=== PATIENT | male | born 1970 | race Caucasian/White ===

== ENCOUNTER 2017-03-12 10:56 | Emergency (ER) | payer OTHER ==
[~2017-03-12] VITALS: Ht 180.3 cm; Wt 127.5 kg
[2017-03-12 11:16] LABS: CREATININE 0.8 mg/dL (0.6-1.3)
[2017-03-12 11:31] LABS: PROTHROMBIN TIME 10.2 (9.2-11.2); PTT 25.2 (25-32)
[2017-03-12 11:32] LABS: AMYLASE 57 IU/L (1-118)
[2017-03-12 11:40] LABS: LIPASE 20 U/L (1.0-51.0)
[2017-03-12 11:42] LABS: TROP-I INTERPRETATION NEGATIVE; TROPONIN-I < 0.01 ng/mL (0.0-0.30)
[2017-03-12 12:49] VITALS: BP 143/92
== END 2017-03-12 12:48 | disposition short-term general hospital (02) ==
LOC: EME 10:56
PROVIDERS: Emergency Medicine
DX: I63.511 Cerebral infarction due to unspecified occlusion or stenosis of right middle cerebral artery (principal); I10 Essential (primary) hypertension; F17.200 Nicotine dependence, unspecified, uncomplicated; R29.810 Facial weakness; R47.81 Slurred speech
CPT/HCPCS: 70450; 80047; 82150; 83690; 84484; 85610; 85730; 93005; J2997

== ENCOUNTER 2017-03-17 11:49 | Inpatient (IN) | payer OTHER ==
[~2017-03-17] VITALS: Ht 180.3 cm; Wt 121.0 kg
[2017-03-17] MEDS ORDERED: HEPARIN SO5000 UNITS SC (15:17)
[2017-03-17] MEDS ORDERED: ACETAMINOPHEN325 M1 PO (15:18)
[2017-03-17] MEDS ORDERED: ATORVASTATIN CA40 MG PO (15:19)
[2017-03-17] MEDS ORDERED: PLAVIX75 MG PO (15:19)
[2017-03-17] MEDS ORDERED: ASPIR 8181 M1 PO (15:19)
[2017-03-17] MEDS ORDERED: LABETALOL HCL300 MG PO (15:20)
[2017-03-17] MEDS ORDERED: NICODERM CQ1 EAC2 TD (15:22)
[2017-03-17] MEDS ORDERED: FLUOXETINE HCL20 MG PO (15:23)
[2017-03-17 16:04] VITALS: BP 132/81
[2017-03-17 21:54] VITALS: BP 135/87
[2017-03-18 03:48] VITALS: BP 131/90
[2017-03-18 05:34] LABS: MCH 30.1 PG (29.0-34.0); MCHC 34.3 G/DL (30.0-36.0); MCV 87.9 FL (86-99); MEAN PLAT.VOLUME 9.4 uM^3 (9.0-12.4); PLATELET COUNT 320 K/uL (156-360); RBC DIS.WIDTH-CV 13.2 % (11.8-14.6); RBC DIS.WIDTH-SD 42.8 % (39-53); RED BLOOD COUNT 4.55 M/uL (4.00-5.50); WHITE BLOOD COUNT 6.4 K/uL (4.1-10.2)
[2017-03-18 05:41] LABS: CHLORIDE 106 mEq/L (99-109); POTASSIUM 4.2 mEq/L (3.7-5.4); SODIUM 139 mEq/L (136-147)
[2017-03-18 05:44] LABS: GLUCOSE 95 mg/dL (70-99)
[2017-03-18 05:45] LABS: ANION GAP 10 MEQ/L (2-14)
[2017-03-18 05:46] LABS: TOTAL BILIRUBIN 1.3 mg/dL (0.0-1.0)
[2017-03-18 05:47] LABS: ALKALINE PHOSPHATASE 48 IU/L (3-129); GFR ESTIMATE (CALCULATED) > 59 mL/min/
[2017-03-18 05:48] LABS: UREA NITROGEN (BUN) 23 mg/dL (9-23)
[2017-03-18 15:43] VITALS: BP 125/81
[2017-03-19 04:26] LABS: TOTAL BILIRUBIN 1.4 mg/dL (0.0-1.0)
[2017-03-19 04:27] LABS: ALKALINE PHOSPHATASE 51 IU/L (3-129)
[2017-03-19 04:29] LABS: DIRECT BILIRUBIN 0.4 mg/dL (0.0-0.3)
[2017-03-19 05:12] VITALS: BP 112/70
[2017-03-19 09:27] LABS: HBSG INDEX 0.21; HPCA INDEX 0.09
[2017-03-19 09:28] LABS: ANTI-HEPATITIS A VIRUS (IGM) Nonreactive; HAV INDEX 0.13
[2017-03-19 09:29] LABS: ANTI-HEPATITIS B CORE (IGM) Nonreactive; HBC IgM INDEX 0.06
[2017-03-19 15:40] VITALS: BP 136/97
[2017-03-20 05:18] VITALS: BP 117/57
[2017-03-20 15:01] VITALS: BP 116/67
[2017-03-21 05:17] VITALS: BP 110/74
[2017-03-21 15:03] VITALS: BP 126/74
[2017-03-22 04:43] VITALS: BP 125/82
[2017-03-22 15:38] VITALS: BP 134/71
[2017-03-23 05:57] VITALS: BP 123/75
[2017-03-23 15:40] VITALS: BP 130/78
[2017-03-24 05:48] VITALS: BP 109/71
[2017-03-24 15:34] VITALS: BP 119/83
[2017-03-25 05:10] VITALS: BP 112/64
[2017-03-25 05:51] LABS: BASOPHIL COUNT 0.1 K/uL (0-0.1); EOSINOPHIL (%) 2.5 % (0-5); EOSINOPHIL COUNT 0.2 K/uL (0-0.3); HEMATOCRIT 42.7 % (38.0-50.0); IMMATURE GRANULOCYTE (%) 0.4 % (0.0-0.7); INSTRUMENT ABS NEUTROPHIL CT 4.1 K/uL; MCH 29.8 PG (29.0-34.0); MCHC 33.5 G/DL (30.0-36.0); MEAN PLAT.VOLUME 9.4 uM^3 (9.0-12.4); MONOCYTE (%) 10.2 % (3-12); MONOCYTE COUNT 0.8 K/uL (0-0.8); NEUTROPHIL (%) 49.4 % (45-76); NEUTROPHIL COUNT 4.1 K/uL (1.8-6.4); PLATELET COUNT 371 K/uL (156-360); RBC DIS.WIDTH-CV 13.2 % (11.8-14.6); RBC DIS.WIDTH-SD 43.4 % (39-53); WHITE BLOOD COUNT 8.3 K/uL (4.1-10.2)
[2017-03-25 06:15] LABS: ALKALINE PHOSPHATASE 53 IU/L (3-129); ANION GAP 11 MEQ/L (2-14); CHLORIDE 103 MEQ/L (99-109); GFR ESTIMATE (CALCULATED) > 59 mL/min/; GLUCOSE 88 mg/dL (70-99); POTASSIUM 3.8 MEQ/L (3.7-5.4); SAMPLE HEMOLYSIS CHECK 0; SAMPLE ICTERIC CHECK 0; SAMPLE LIPEMIA CHECK 0; SODIUM 138 MEQ/L (136-147); TOTAL BILIRUBIN 0.9 MG/DL (0.0-1.0); UREA NITROGEN (BUN) 22 mg/dL (9-23)
[2017-03-25 15:12] VITALS: BP 116/68
[2017-03-26 05:54] VITALS: BP 114/79
[2017-03-26 15:30] VITALS: BP 145/74
[2017-03-27 05:02] VITALS: BP 124/72
[2017-03-27 15:56] VITALS: BP 136/88
[2017-03-28 04:53] VITALS: BP 127/81
[2017-03-28 15:20] VITALS: BP 123/84
[2017-03-29 05:49] VITALS: BP 117/68
[2017-03-29 15:50] VITALS: BP 134/86
[2017-03-30 05:25] VITALS: BP 100/66
[2017-03-30] MEDS ORDERED: NICODERM CQ1 EAC1 TD (11:14)
[2017-03-30] MEDS ORDERED: LABETALOL HCL300 MG PO (11:18)
[2017-03-30] MEDS ORDERED: ATORVASTATIN CA40 MG PO (11:18)
[2017-03-30] MEDS ORDERED: BUTALB-APAP-CA1 EACH PO (11:18)
[2017-03-30] MEDS ORDERED: SENNA PLUS TAB1 EACH PO (11:18)
[2017-03-30] MEDS ORDERED: TYLENOL REGULA325 MG PO (11:18)
[2017-03-30] MEDS ORDERED: PLAVIX75 MG PO (11:18)
[2017-03-30] MEDS ORDERED: FLUOXETINE HCL20 MG PO (11:18)
[2017-03-30] MEDS ORDERED: THERAGRAN1 TABLET PO (11:18)
[2017-03-30] MEDS ORDERED: ASPIR 8181 M1 PO (11:18)
[2017-03-30] MEDS ORDERED: LABETALOL HCL100 MG PO (12:18)
== END 2017-03-30 13:16 | DRG 57 ==
LOC: 3WEST 11:49
PROVIDERS: Internal Medicine Gastroenterology; Physical Medicine & Rehabilitation Pain Medicine; Psychiatry & Neurology Neurology
PROC: F07M0ZZ Range of Motion and Joint Mobility Treatment of Musculoskeletal System - Whole Body (ICD-10-PCS; principal; 2017-03-17)
DX: I69.354 Hemiplegia and hemiparesis following cerebral infarction affecting left non-dominant side (principal); I69.322 Dysarthria following cerebral infarction; I69.391 Dysphagia following cerebral infarction; R13.11 Dysphagia, oral phase; R26.2 Difficulty in walking, not elsewhere classified; I65.21 Occlusion and stenosis of right carotid artery; R74.8 Abnormal levels of other serum enzymes; K76.0 Fatty (change of) liver, not elsewhere classified; K74.60 Unspecified cirrhosis of liver; R94.31 Abnormal electrocardiogram [ECG] [EKG]; I10 Essential (primary) hypertension; E66.9 Obesity, unspecified; Z68.37 Body mass index [BMI] 37.0-37.9, adult; Z71.3 Dietary counseling and surveillance; G89.29 Other chronic pain; M25.512 Pain in left shoulder; G43.909 Migraine, unspecified, not intractable, without status migrainosus; E78.00 Pure hypercholesterolemia, unspecified; E78.5 Hyperlipidemia, unspecified; F17.210 Nicotine dependence, cigarettes, uncomplicated; Z95.828 Presence of other vascular implants and grafts
CPT/HCPCS: 76705; 80053; 80074; 80076; 85025; 85027; 86038; 92507 GN; 92523 GN; 92526 GN; 92610 GN; 93306; 97110 GO; 97112 GO; 97530 GP; J1650

== ENCOUNTER → 2017-04-26 | Outpatient (CLI) | payer OTHER ==
[~2017-04-26] MED LIST: ACETAMINOPHEN325 M1 PO; ASPIR 8181 M1 PO; ATORVASTATIN CA40 MG PO; BUTALB-APAP-CA1 EACH PO; FLUOXETINE HCL20 MG PO; HEPARIN SO5000 UNITS SC; LABETALOL HCL100 MG PO; LABETALOL HCL300 MG PO; NICODERM CQ1 EAC1 TD; NICODERM CQ1 EAC2 TD; PLAVIX75 MG PO; SENNA PLUS TAB1 EACH PO; THERAGRAN1 TABLET PO; TYLENOL REGULA325 MG PO
== END | disposition home or self-care (01) ==
DX: R13.11 Dysphagia, oral phase (principal)
CPT/HCPCS: 92611 GN

== ENCOUNTER 2017-08-15 05:59 | Emergency (ER) | payer OTHER ==
[~2017-08-15] VITALS: Ht 180.3 cm; Wt 119.9 kg
[2017-08-15 08:14] LABS: BASOPHIL COUNT 0.1 K/uL (0-0.1); EOSINOPHIL (%) 1.3 % (0-5); EOSINOPHIL COUNT 0.1 K/uL (0-0.3); HEMATOCRIT 43.4 % (38.0-50.0); IMMATURE GRANULOCYTE (%) 0.3 % (0.0-0.7); INSTRUMENT ABS NEUTROPHIL CT 4.7 K/uL; LYMPHOCYTE COUNT 1.7 K/uL (1.0-2.8); MCH 30.1 PG (29.0-34.0); MCHC 34.6 G/DL (30.0-36.0); MEAN PLAT.VOLUME 9.3 uM^3 (9.0-12.4); MONOCYTE (%) 7.6 % (3-12); MONOCYTE COUNT 0.5 K/uL (0-0.8); NEUTROPHIL (%) 66.5 % (45-76); NEUTROPHIL COUNT 4.7 K/uL (1.8-6.4); PLATELET COUNT 286 K/uL (156-360); RBC DIS.WIDTH-CV 13.3 % (11.8-14.6); RBC DIS.WIDTH-SD 42.3 % (39-53); RED BLOOD COUNT 4.99 M/uL (4.00-5.50)
[2017-08-15 08:18] LABS: PROTHROMBIN TIME 11.1 SEC (10.2-12.9)
[2017-08-15 08:20] LABS: PTT 29.2 SEC (25-37)
[2017-08-15 08:45] LABS: ANION GAP 9 MEQ/L (2-14); CHLORIDE 104 MEQ/L (99-109); POTASSIUM 4.2 MEQ/L (3.7-5.4); SAMPLE HEMOLYSIS CHECK 0; SAMPLE ICTERIC CHECK 0; SAMPLE LIPEMIA CHECK 0; SODIUM 138 MEQ/L (136-147)
[2017-08-15 08:50] LABS: GFR ESTIMATE (CALCULATED) > 59 mL/min/; GLUCOSE 103 mg/dL (70-99); UREA NITROGEN (BUN) 17 mg/dL (9-23)
[2017-08-15 08:59] LABS: TROP-I INTERPRETATION NEGATIVE; TROPONIN-I < 0.01 ng/mL (0.0-0.30)
[2017-08-15] MEDS ORDERED: ANTIVERT25 MG PO (11:35)
[2017-08-15 12:29] VITALS: BP 115/80
== END 2017-08-15 12:30 | disposition home or self-care (01) ==
LOC: EME 05:59
PROVIDERS: Emergency Medicine
DX: R42 Dizziness and giddiness (principal); R11.0 Nausea; I10 Essential (primary) hypertension; I69.992 Facial weakness following unspecified cerebrovascular disease; Z79.82 Long term (current) use of aspirin; Z87.891 Personal history of nicotine dependence
CPT/HCPCS: 70140; 70450; 70551; 71010; 80048; 84484; 85025; 85610; 85730; 93005; 99281; 99284